=== PATIENT | female | born 1950 | race Two or more races ===

== ENCOUNTER 2024-10-29 17:43 | Emergency (ER) | payer OTHER ==
[~2024-10-29] VITALS: Ht 154.9 cm; Wt 94.8 kg
[2024-10-29] MEDS ORDERED: ZESTRIL30 MG (17:54)
[2024-10-29] MEDS ORDERED: XARELTO20 M1 (17:55)
[2024-10-29 18:51] LABS: BASO % 0.2 % (0.1-1.2); EOS # 0.34 (0.04-0.54); EOS % 3.2 % (0.7-7.0); LYMPH # 1.89 (1.18-3.74); LYMPH % 17.9 % (19.3-53.1); MEAN PLATELET VOLUME 10.80 fl (9.4-12.4); MONO # 0.59 (0.24-0.82); MONO % 5.6 % (4.7-12.5); NEUT # 7.64 (1.56-6.13); NEUT % 72.4 % (34.0-71.1); RED CELL DISTRIBUTION WIDTH 13.2 % (11.6-14.4)
[2024-10-29 19:14] LABS: ALT/SGPT 58.0 U/L (12-78); AST/SGOT 41.0 U/L (15-37); BILIRUBIN TOTAL 0.35 mg/dL (0.3-1.2); BUN CREA RATIO 37.0 (7.0-25.0); CREATININE SERUM 0.71 mg/dL (0.55-1.02); GFR 80.04; GLOBULINA 4.2 G/DL (2.4-3.5); GLUCOSE FASTING 138.0 mg/dL (65-100); OSMOLALITY SERUM 292.0 MOSM/KG (275-295)
[2024-10-29 19:41] LABS: URINE APPEARANCE Clear; URINE BILIRRUBIN Negative (NEGATIVE); URINE BLOOD Negative; URINE COLOR Yellow; URINE GLUCOSE Negative (NEGATIVE); URINE KETONE Trace (NEGATIVE); URINE LEUKOCYTE Negative; URINE NITRATE Negative; URINE PROTEIN Negative (NEGATIVE); URINE UROBILINOGEN 1.0 E.U./dl
[2024-10-29 19:45] LABS: URINE BACTERIA 11.9 uL (0.0-1933); URINE EPITHELIAL CELLS 3.9 uL (0.0-38.8); URINE RBC 2.3 uL (0.0-20.8)
[2024-10-29 20:00] LABS: URINE CAST 0.00 uL (0.0-1.40); URINE WBC 1.5 uL (0.0-23.2)
== END 2024-10-29 20:56 | disposition home or self-care (01) ==
LOC: ER 17:43
PROVIDERS: General Practice
DX: I10 Essential (primary) hypertension (principal); Z88.6 Allergy status to analgesic agent